=== PATIENT | female | born 1945 | race Two or more races ===

== ENCOUNTER 2017-12-20 13:22 | Emergency (ER) | payer OTHER ==
[2017-12-20 13:33] VITALS: BP 125/60; PULSE 102; TEMP 98; BMI 23.1
--- NOTE | 2017-12-20 14:01 | PDOC ---
Suture Removal/Wound Check HPI - History of Present Illness Chief Complaint: Suture/Staple Removal(Here) Stated Complaint: SUTURE/STAPLE REMOVAL Time Seen by Provider: 12/20/17 13:54 History Source: Yes: Patient Exam Limitations: Yes: No Limitations Treated at: [facility] ED - Previous ED Treatment Type of procedure performed on last visit: Yes: Laceration Repair Tetanus Immunization: Yes: Up to Date Past History - Travel Traveled outside of the country in the last 30 days: No Close contact w/someone who was outside of country & ill: No - Past Medical History Allergies/Adverse Reactions: Allergies Allergy/AdvReac Type Severity Reaction Status Date / Time No Known Allergies Allergy Verified 12/20/17 13:33 Home Medications: Ambulatory Orders Amox-Tr/K Cl [Augmentin - 875Mg Tablet] 1 tab PO BID #14 tablet 12/13/17 Ibuprofen 800 mg PO Q8H PRN #20 tablet 12/13/17 CVA: No COPD: No Diabetes: Yes HTN: Yes Hypercholesterolemia: Yes - Suicide/Smoking/Psychosocial Hx Smoking History: Never smoked Have you smoked in the past 12 months: No Hx Alcohol Use: No Drug/Substance Use Hx: No Suture Removal/Wound Check PE - Physical Exam Laceration/Wound Check Symptoms: reports: Improved Current Severity Level: None Maximum Severity Level: None Location of Laceration/Wound: left: Foot (plantar surface) *Review of Systems - Review of Systems Able to Perform ROS?: Yes Constitutional: No: Chills, Fever, Weakness Integumentary: Yes: Other (Simple interrupted sutures present). No: Erythema, Rash *Physical Exam - Vital Signs Last Vital Signs Temp Pulse Resp BP Pulse Ox 98 F 102 H 18 125/60 98 12/20/17 13:30 12/20/17 13:30 12/20/17 13:30 12/20/17 13:30 12/20/17 13:30 - Physical Exam General Appearance: Yes: Nourished, Appropriately Dressed. No: Apparent Distress Integumentary: positive: Normal Color, Dry, Warm, Other (6cm laceration to the L plantar foot with [address] in place. 1cm is without sutures and open, no infection present) Medical Decision Making - Medical Decision Making 12/20/17 14:22 Pt is a 72 y/o F who presents to the ED for suture removal to the L plantar foot -6 simple interrupted sutures removed -1cm of the old laceration open and healing well. -Instructed pt to continue her abx -DC home I discussed the physical exam findings, ancillary test results and final diagnoses with the patient. I answered all of the patient's questions. The patient was satisfied with the care received and felt comfortable with the discharge plan and treatment plan. The Patient agrees to follow up with the primary care physician/specialist within 24-72 hours. Return precautions were given. *DC/Admit/Observation/Transfer Diagnosis at time of Disposition: Visit for suture removal - Discharge Dispostion Disposition: HOME Condition at time of disposition: Stable Decision to Admit order: No - Referrals Referrals: Dorothy Aguilar MD [Primary Care Provider] - - Patient Instructions Printed Discharge Instructions: DI for Suture Removal Additional Instructions: You had your sutures removed today. Keep the area clean and dry Avoid soaking the area with water for 1 more week as to what the wound fully heal. Follow-up with her primary care doctor as needed Return to the emergency department if you develop fevers, drainage from the site , increased pain, or have any changes in your symptoms. - Post Discharge Activity
== END 2017-12-20 14:26 | disposition home or self-care (01) ==
LOC: JERFT 13:22
DX: Z48.817 Encounter for surgical aftercare following surgery on the skin and subcutaneous tissue (principal); Z48.02 Encounter for removal of sutures
CPT/HCPCS: 99281-25